=== PATIENT | male | born 1985 | race Two or more races ===

== ENCOUNTER 2020-05-31 17:11 | Outpatient (CLI) | payer OTHER ==
--- NOTE | 2020-06-01 08:56 | Ultrasound Report ---
PROCEDURE: Testicle INDICATIONS: LEFT TESTICULAR SWELLING, PAIN TECHNIQUE: Real-time scanning was performed of the scrotum and testicles, with image documentation. Color and p ulse Doppler interrogation was performed of both testicles. COMPARISON: None. FINDINGS: Right: Testicle is normal in size at 4.7 x 2.6 x 3.4 cm, and homogenous in echotexture. Epididymis is normal in overall size and morphology. No hydrocele or varicoceles. Overlying scrotal skin is no rmal in thickness. There are small hydroceles and tiny epididymal head cysts. Left: Testicle is normal in size at 4.3 x 2.5 x 3.7 cm, and homogeneous in echotexture. Epididymis is normal in overall size and morphology. No hydrocele or varicoceles. Overlying scrotal skin is no rmal in thickness. There are small and tiny epididymal head cysts. Doppler: Color and pulse Doppler demonstrate normal and symmetric arterial flow in both testicles. IMPRESSION: 1. No acute abnormality of the scrotum were testicles. 2. Normal testicular ultrasound. 3. Small hydroceles and tiny epididymal head cysts do not appear significant. Reviewed by: Sha Jones on 06/01/2020 8:55 AM PST Approved by: Sha Jones on 06/01/2020 8:55 AM PST Station ID: [id number]
== END 2020-05-31 17:12 | disposition home or self-care (01) ==
LOC: DI 17:11
PROVIDERS: ATTEND Physician Assistant
DX: N50.89 Other specified disorders of the male genital organs (principal); N50.812 Left testicular pain; N43.3 Hydrocele, unspecified; N50.3 Cyst of epididymis
CPT/HCPCS: 76870

== ENCOUNTER 2020-06-14 21:15 | Outpatient (CLI) | payer OTHER | END 2020-06-14 21:16 | disposition home or self-care (01) | LOC: COV 21:15 | PROVIDERS: ATTEND Family Medicine | DX: U07.1 COVID-19 (principal) ==